=== PATIENT | female | born 1980 | race Caucasian/White ===

== ENCOUNTER 2021-03-24 17:03 | Emergency (ER) | payer MEDICAID ==
[~2021-03-24 17:03] MED LIST: AMOXICILLIN875 MG PO; BENTYL 10MG CAP10 MG PO; COLACE 100MG C100 MG PO; FLONASE 0.05% N16 GM; MULTI FOR HER1 EACH PO; OMEPRAZOLE40 MG PO; VITAMIN D31000 UNI1 PO; ZOFRAN4 MG PO
[2021-03-24] MEDS ORDERED: MEDROL DOSEPAK 24 MG PO (20:13)
[2021-03-24] MEDS ORDERED: 12 HOUR DECONG120 M1 PO (20:13)
[2021-03-24] MEDS ORDERED: DELSYM30 MG/5 ML PO (20:13)
== END 2021-03-24 20:26 | disposition home or self-care (01) ==
LOC: ER1 17:03
DX: R05.9 Cough, unspecified (principal); Z20.822 Contact with and (suspected) exposure to COVID-19
CPT/HCPCS: 99283; U0002

== ENCOUNTER 2021-11-03 11:10 | Emergency (ER) | payer MEDICAID ==
[~2021-11-03 11:10] MED LIST changes: +12 HOUR DECONG120 M1 PO; +DELSYM30 MG/5 ML PO; +MEDROL DOSEPAK 24 MG PO
== END 2021-11-03 13:37 | disposition home or self-care (01) ==
LOC: ER1 11:10
DX: J02.9 Acute pharyngitis, unspecified (principal); F17.290 Nicotine dependence, other tobacco product, uncomplicated; R59.1 Generalized enlarged lymph nodes; Z20.822 Contact with and (suspected) exposure to COVID-19
CPT/HCPCS: 0241U; 87081; 87880; 99283